=== PATIENT | female | born 1945 | race Caucasian/White ===

== ENCOUNTER 2018-07-28 07:49 | Day surgery (SDC) | payer OTHER, MEDICARE ==
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
--- OUTSIDE RECORDS SUMMARY | 2018-07-28 07:52 | XMS REPORT | Encounter Summary ---
:1945 Author Care Team Providers Name Role Phone Ezequiel Palacio MD Primary Care Provider Unavailable Reason for Visit Follow Up Visit Instructions 1. Colitis Discussion Note: None recorded.Patient educational handouts: No information available. Plan of Care Reminders Provider Appointments Follow up 10/30/2018 Ezequiel Kay 8:30AM MD [facility] None recorded. Referral None recorded. Procedures None recorded. Surgeries None recorded. Imaging None recorded. Medications Name Start Date amlodipine 5mg po qd Aspir-81 1 tab po qd astaxanthin 10 mg Benadryl 25 mg capsule Take 2 capsules every 4 hours by oral route at bedtime. coQ10 (ubiquinol) 200mg bid folic acid 400 mcg garlic 1,000 mg capsule Take 1 capsule twice a day by oral route. ginkgo biloba 60 mg capsule Take by oral route. melatonin 5mg hs [facility] potassium 99 mg tablet Take 1 mg twice a day by oral route. Protonix 40 mg tablet,delayed release Take 1 tablet every day by oral route for 30 days. tramadol 50 mg tablet Take 1 tablet every 6 hours by oral route. turmeric 500mg/kash 50mg bid Medications Administered None recorded. Vitals Height Weight BMI Blood Pressure 68 in 177 lbs 16 oz 27.1 kg/m2 150/78 mm[Hg] Lab Results None recorded. Allergies Code Code System Name Reaction Severity Status Onset 723 RxNorm Amoxicillin Active 69204 RxNorm Atorvastatin Active 095457 RxNorm Keflex Active 42947 RxNorm Pravastatin Active 26890 RxNorm Simvastatin Active Zithromax Z-kylie Active NKDA Problems None recorded. Procedures Date Name Performed by Knee Surgery Information not available Cardiac Catheterization Information not available Cataract Surgery Information not available Shoulder Surgery Procedure Information not available Hernia Repair W/mesh Information not available Oophorectomy Information not available Thyroidectomy Information not available Section Information not available Removal of Tonsils Information not available Vaccine List None recorded. Social History Smoking Status Never Smoker Past Encounters 05/05/2018 Colitis Ezequiel Palacio MD: [address], [address], [place] [address], Ph. 04/07/2018 Colitis Ezequiel Rahul Palacio MD: [address], [address], [place] [address], Ph. History of Present Illness Note: F/u on sigmoid colitis, s/p colonoscopy, no more rectal bleeding, feels well, denies appetite problems, physical activity is normal. Denies abdominal pain. No fevers or chills, no nausea or vomiting.Review of Systems: ROS as noted in the HPI Review of Systems None recorded. Physical Exam General Adult Exam - Female Reported By: Patient Constitutional: General Appearance: healthy-appearing, well-nourished, well-developed. Level of Distress: NAD. Ambulation: ambulating normally Psychiatric: Insight: good judgement. Mental Status: active and alert, normal mood, normal affect. Orientation: to time, to place, to person. Memory: recent memory normal Head: Head: normocephalic Eyes: Pupils: PERRLA. EOM: EOMI. Sclerae: non-icteric ENMT: Oropharynx: moist mucous membranes Neck: Neck: supple, FROM. Thyroid: no enlargement, non-tender, no nodules Lungs: Respiratory effort: no dyspnea. Auscultation: breath sounds normal, good air movement Cardiovascular: Heart Auscultation: RRR, normal S1, normal S2. Neck vessels: no carotid bruits. Pulses including femoral / pedal: normal throughout Abdomen: Bowel Sounds: normal. Inspection and Palpation: soft, non-distended, no tenderness, no guarding Musculoskeletal:: Motor Strength and Tone: normal motor strength, normal tone. Joints, Bones, and Muscles: normal movement of all extremities. Extremities: no cyanosis, no edema, no varicosities Neurologic: Gait and Station: normal gait, normal station. Cranial Nerves: grossly intact. Reflexes: DTRs 2+ bilaterally throughout Skin: Inspection and palpation: no rash, no lesions
[2018-07-28] MEDS ORDERED: PHENYLEPHRINE 10% OPTH 5ML ONE (08:24)
[2018-07-28] MEDS ORDERED: CYCLOPENTOLATE 1% OPTH 2 ML ONE (08:24)
[2018-07-28] MEDS ORDERED: CYCLOPENTOLATE 1% OPTH 2 ML OPTH ONE ×2 (08:35→08:40)
[2018-07-28] MEDS ORDERED: PHENYLEPHRINE 10% OPTH 5ML OPTH ONE ×2 (08:35→08:40)
[2018-07-28] MEDS: NA CHLORIDE 0.9% 500 ML ONE ×2 (08:37→09:29)
[2018-07-28] MEDS ORDERED: EPINEPHRINE/PF 1 MG/ML AMP ONE (09:17)
[2018-07-28] MEDS ORDERED: DUOVISC 1 KIT OPTH ONE (09:17)
[2018-07-28] MEDS ORDERED: NS 0.9% VIAL 10 ML ONE (09:17)
[2018-07-28] MEDS ORDERED: BALANCED SALT IRRIG PLAIN 500 ML BTL IRR ONE (09:17)
[2018-07-28] MEDS ORDERED: MOXIFLOXACIN HCL 10 DROPS/ML **OR USE OPTH ONE (09:17)
[2018-07-28] MEDS: LIDOCAINE 2% MPF 5 ML VIAL ONE ×2 (09:19→10:02)
[2018-07-28] MEDS: BUPIVACAINE 0.25% PF 10 ML VIAL ONE ×2 (09:19→10:02)
[2018-07-28] MEDS: TETRACAINE HCL 0.5% 2ML OPTH ONE ×2 (09:19→10:00)
[2018-07-28] MEDS ORDERED: LIDOCAINE 2% MPF 5 ML VIAL ONE (10:01)
[2018-07-28] MEDS ORDERED: PROPOFOL 200 MG/20 ML VIAL IV ONE ×2 (10:01→10:11)
[2018-07-28] MEDS ORDERED: LIDOCAINE 1% MPF 5 ML VIAL ONE (10:11)
--- NOTE | 2018-07-28 10:39 | P.BOP ---
Preoperative diagnosis: Nuclear sclerotic cataract OS Postoperative diagnosis: Same Primary procedure: Phacoemulsification with IOL OS Estimated blood loss: None Anesthesia: Local (Subtenon's infusion with anesthesia for cataract surgery) Complications: None Implants: SA60WF +20.0 Transferred to: Other (Day surgery) Condition: Good
--- NOTE | 2018-07-29 06:40 | OP ---
Surgeon: Lisa Palacios MD Anesthesiologist: Diana Alfaro CRNA and Wei Evangelista MD. Preoperative Diagnosis: Nuclear sclerotic cataract, left eye. Operation Performed: Phacoemulsification with intraocular lens implant, left eye. Anesthesia: Per cataract surgery. Complications: None. Description Of Procedure: In day surgery, the patient was prepped with Betadine and draped. A conju nctival incision was made in the inferior nasal quadrant with Wanda scissors. A sub-Tenon block c onsisting of a 1:1 mixture of 2% Xylocaine and 0.25% bupivacaine was placed through the conjunctival incision with a blunt cannula. A [place] balloon was placed over the eye and the patient was transferr ed to the operating room. In the operating room the patient was prepped and draped in the usual sterile fashion for ophthalmic surgery. A lid speculum was placed in the left eye. Two paracentesis sites were made superiorly and inferiorly in the limbal cornea. Viscoat was placed in the anterior chamber and a crescent blade wa s used to make a corneal groove and tunnel, and a keratome was used to enter the anterior chamber. P rovisc was placed in the anterior chamber and a 360 degree capsulotomy was performed with a cystitome . The lens was hydrodissected with BSS and rotated freely. The lens was removed with a stop and cho p technique. 18.92 phaco CDE was used to remove the lens. Residual cortex was removed with the irri gation and aspiration. Provisc was placed in the capsular bag. A SA60WF +20.0 lens was placed in th e capsular bag without complications. Irrigation and aspiration was used to remove residual viscoela stic. The paracentesis sites were hydrated with BSS. The wound and paracentesis sites were inspecte d and found to be watertight. Vigamox 0.07 cc was placed intracamerally at the end of the procedure. The eye was irrigated with balanced salt solution. The eye was patched with a soft cotton patch an d Kauffman metal shield. The patient was returned to day surgery in good condition. Comments: Discharge Instructions: Ms. Chi is discharged to home in good condition and is to follow up with Dr. Palacios in the morning. MATHEW/SAMRA Voice ID: [id number] Report ID: [id number]
== END 2018-07-28 11:10 | disposition home or self-care (01) ==
LOC: OR 07:49
PROVIDERS: ATTEND Ophthalmology Retina Specialist
PROC: 08RK3JZ Replacement of Left Lens with Synthetic Substitute, Percutaneous Approach (ICD-10-PCS; principal; 2018-07-28 09:30)
DX: H25.12 Age-related nuclear cataract, left eye (principal); Z79.82 Long term (current) use of aspirin; Z88.0 Allergy status to penicillin; Z88.1 Allergy status to other antibiotic agents; Z83.511 Family history of glaucoma; Z80.6 Family history of leukemia; Z82.49 Family history of ischemic heart disease and other diseases of the circulatory system
CPT/HCPCS: 36415; 84132; 66984; J2704; J0171